=== PATIENT | female | born 1960 ===

== ENCOUNTER → 2018-03-31 | Day surgery (SDC) | payer OTHER | END | disposition home or self-care (01) | LOC: ADM 03-24 11:30 → AMB-ENDOS 07:37 → CIR.AMB 11:30 → AMB-ENDOS 11:30 | DX: D12.8 Benign neoplasm of rectum (principal); K64.2 Third degree hemorrhoids ==

== ENCOUNTER 2019-05-04 08:26 | Day surgery (SDC) | payer OTHER | END 2019-05-04 17:20 | disposition home or self-care (01) | LOC: AMB-ENDOS 08:26 | DX: K64.1 Second degree hemorrhoids (principal) ==